=== PATIENT | female | born 1985 | race Caucasian/White ===

== ENCOUNTER → 2020-05-12 11:38 | Outpatient (BNVA) | payer BC, SELFPAY | PROVIDERS: Visit Provider Advanced Practice Midwife | DX: Z76.89 Persons encountering health services in other specified circumstances (principal) ==

== ENCOUNTER 2020-05-12 12:37 | Outpatient (REF) | payer BC, SELFPAY ==
[2020-05-12 13:19] LABS: Hematocrit 27.7 % (37-47); Hemoglobin 8.1 g/dl (12.0-16.0)
== END 2020-05-12 12:38 | disposition home or self-care (01) ==
LOC: HO.LAB 12:37
PROVIDERS: PCP Internal Medicine; Visit Provider Advanced Practice Midwife
DX: O99.019 Anemia complicating pregnancy, unspecified trimester (principal); D56.9 Thalassemia, unspecified; Z3A.00 Weeks of gestation of pregnancy not specified
CPT/HCPCS: 36415; 85014; 85018

== ENCOUNTER → 2020-05-19 08:50 | Outpatient (BNVA) | payer BC, SELFPAY | PROVIDERS: PCP Internal Medicine; Visit Provider Advanced Practice Midwife | DX: Z76.89 Persons encountering health services in other specified circumstances (principal) ==

== ENCOUNTER → 2020-05-25 09:33 | Outpatient (BNVA) | payer BC, SELFPAY | PROVIDERS: PCP Internal Medicine; Visit Provider Advanced Practice Midwife | DX: Z76.89 Persons encountering health services in other specified circumstances (principal) ==

== ENCOUNTER 2020-05-26 14:39 | Outpatient (REF) | payer BC, SELFPAY ==
--- NOTE | 2020-05-26 14:57 | US_ITS ---
EXAMINATION: OBSTETRICAL ULTRASOUND, Follow up HISTORY: 34-year-old at the 40.3 weeks of gestation Postterm Size date discrepancy COMPARISON: 04/28/2020 TECHNIQUE: Real time transabdominal imaging with color and M-mode Doppler. PRESENTATION: Vertex PLACENTA LOCATION: Anterior without previa AMNIOTIC FLUID: SAVANNAH 11.6 cm MEASUREMENTS: 1. Biparietal Diameter: 8.5 cm; 34.2 wks 2. Head Circumference: 32.7 cm; 37.2 wks 3. Abdominal Circumference: 34.9 cm; 38.6 wks 4. Femur Length: 7.7 cm; 39.2 wks 5. Heart Rate: 158 beats per minute WEIGHT: EFW: 3393 grams (7 lbs 8 oz) -- N/A %. BIOPHYSICAL PROFILE: Motion: 2 Tone: 2 Breathin Amniotic Fluid: 2 Total score: 8/8 GESTATIONAL AGE: 1. Established GA: 40.3 wks 2. GA from AUA: 37.3 wks ESTIMATED DATE OF DELIVERY: 1. Established MARK: 05/23/2020 2. MARK from AUA: 06/13/2020 IMPRESSION: 1. A single active fetus is noted in vertex presentation 2. Size equals dates 3. Reassuring biophysical profile Patient has no obstetrical complaints. She informs me that she had term vaginal deliveries x 2. The weight of her first child was approximately 7 1/2 pounds. The second child's weight was 8 lbs. 10 oz. States that the she delivered her second child at 41 weeks. We discussed the risks and benefits of expectant management versus induction of labor after 41 weeks. I agree with the current plan of expectant management until 41 weeks. An induction should be scheduled between 41 and 42 weeks. Thank you very much for this referral. Visiting time 25 minutes. Majority of this visit was spent reviewing and coordinating her care.
== END 2020-05-26 14:40 | disposition home or self-care (01) ==
LOC: HO.US 14:39
PROVIDERS: Visit Provider Advanced Practice Midwife
DX: O48.0 Post-term pregnancy (principal); O26.843 Uterine size-date discrepancy, third trimester; Z3A.40 40 weeks gestation of pregnancy
CPT/HCPCS: 76816

== ENCOUNTER → 2020-05-30 10:06 | Outpatient (BNVA) | payer BC, SELFPAY | PROVIDERS: Visit Provider Advanced Practice Midwife | DX: Z76.89 Persons encountering health services in other specified circumstances (principal) ==

== ENCOUNTER → 2020-07-14 10:46 | Outpatient (BNVA) | payer BC, SELFPAY | PROVIDERS: Visit Provider Advanced Practice Midwife | DX: Z76.89 Persons encountering health services in other specified circumstances (principal) ==